=== PATIENT | male | born 1945 | race Caucasian/White ===

== ENCOUNTER 2017-07-06 23:35 | Emergency (ER) | payer MEDICARE, OTHER ==
--- NOTE | 2017-07-07 00:10 | ED Physician Documentation ---
PD HPI UPPER EXT INJURY - Stated complaint Stated Complaint: FALL, R ARM PX - Chief complaint Chief Complaint: Ext Problem - History obtained from History obtained from: Patient - History of Present Illness Location: Right Type of injury: Fall Where injury occurred: A house / apartment Timing - onset: How many hours ago (2) Timing - details: Abrupt onset Pain level now: 2 Improved by: Rest Worsened by: Moving, Palpating Associated symptoms: Swelling. No: Weakness, Numbness Contributing factors: Anticoagulated Similar symptoms before: Has not had sx before Recently seen: Not recently seen - Additonal information Additional information: tripped and fell in friend's yard approximately 2 hours ago, landed on outstretched RUE, c/o right elbow pain. Patient is right hand dominant. No other injuries, no other c/o. Specifically denies head injury and denies headache Review of Systems Musculoskeletal: reports: Extremity pain, Joint pain, Extremity swelling, Joint swelling Neurologic: denies: Focal weakness, Numbness, Headache, Head injury PD PAST MEDICAL HISTORY - Past Medical History Past Medical History: Yes Cardiovascular: Hypertension, Atrial fibrillation Respiratory: Other Other Past Medical History: PE - Past Surgical History Past Surgical History: Yes Ortho: Knee replacement, Other HEENT: Tonsil/Adenoidectomy - Present Medications Home Medications: Ambulatory Orders Medication Instructions Recorded Confirmed Dabigatran Etexilate Mesylate 75 mg PO BID 07/06/17 07/06/17 [Pradaxa] Metoprolol Tartrate 50 mg PO BID 07/06/17 07/06/17 Verapamil [Calan] 80 mg PO DAILY 07/06/17 07/06/17 HYDROcod/ACETAM 5/325 [[place] 5/325] 1 - 2 ea PO Q6H PRN #15 tablet 07/07/17 - Allergies Allergies/Adverse Reactions: Allergies Allergy/AdvReac Type Severity Reaction Status Date / Time No Known Drug Allergies Allergy Verified 07/06/17 23:43 - Social History Does the pt smoke?: No Smoking Status: Never smoker Does the pt drink ETOH?: Yes Does the pt have substance abuse?: No - Immunizations Immunizations are current?: Yes - POLST Patient has POLST: No PD ED PE NORMAL - Vitals Vital signs reviewed: Yes - General General: Alert and oriented X 3, No acute distress, Well developed/nourished - Neuro Neuro: No motor deficit, No sensory deficit PD ED PE EXPANDED - Extremities Extremities: Tenderness, Limited ROM, Swelling, Right elbow, Other (strong palpable right radial pulse (regularly irregular). LTS intact right hand and digits, brisk capillary refill in digits. ) Results - Vitals Vitals: Vital Signs - 24 hr 07/06/17 07/07/17 07/07/17 23:38 02:05 02:07 Temperature 36.6 C Heart Rate 79 92 86 Respiratory 16 13 18 Rate Blood Pressure 118/79 118/85 H 118/85 H O2 Saturation 100 98 96 07/07/17 07/07/17 07/07/17 02:40 02:50 03:37 Temperature 36.7 C Heart Rate 88 91 76 Respiratory 15 18 18 Rate Blood Pressure 122/81 H 121/80 128/77 O2 Saturation 96 97 99 Oxygen O2 Source Room air - Rads (name of study) right elbow xrays Radiology: Prelim report reviewed, See rad report repeat (post-reduction) right elbow xrays Radiology: Prelim report reviewed, See rad report Procedures - Reduction Body part reduced: Right, Elbow Fracture or dislocation: Fracture dislocation Anesthesia: Conscious sedation Elbow reduction technique: Traction counter traction Reduction aftercare: NV intact, Xray confirms reduction, Alignment improved, Splint applied, Sling, Patient tolerated well - Procedural sedation Sedation prep: Informed consent, PE performed, AHA 2 - mild disease, IV O2 monitor, RT present Sedation medications: morphine, propofol Patient status during sedation: Responds to tactile, Vitals remained stable, Maintained airway, Recovered uneventfully Sedation recovery: Recovered uneventfully, Back to baseline PD MEDICAL DECISION MAKING - ED course Complexity details: reviewed results, re-evaluated patient, considered differential, d/w patient Departure - Departure Disposition: 01 Home, Self Care Clinical Impression: Fracture dislocation of elbow joint Condition: Good Instructions: ED Dislocated Elbow, ED Fx Elbow, ED Sling, ED Splint Care Fiberglass Follow-Up: Lenore Blackwell MD [Provider Admit Priv/Credential] - Within 1 week Prescriptions: HYDROcod/ACETAM 5/325 [[place] 5/325] 1 - 2 ea PO Q6H PRN #15 tablet PRN Reason: Pain Discharge Date/Time: 07/07/17 03:38
--- NOTE | 2017-07-07 00:47 | XRAY Preliminary Report ---
Exam: XR ELBOW 3 VIEW RT IMPRESSION: 1. Fracture of the coronoid process of the ulna with posterior dislocation of the radius and ulna at the elbow. [facility] SITE ID: [id number]
--- NOTE | 2017-07-07 00:47 | XRAY Report ---
EXAM: RIGHT ELBOW RADIOGRAPHY EXAM DATE: 07/07/2017 12:21 AM. CLINICAL HISTORY: Fall, pain, tenderness. COMPARISON: None. TECHNIQUE: 4 views. FINDINGS: Bones: Fracture at the coronoid process of the ulna. Joints: Posterior dislocation of the radius and ulna with respect to the humerus. Soft Tissues: Soft tissue swelling. IMPRESSION: 1. Fracture of the coronoid process of the ulna with posterior dislocation of the radius and ulna at the elbow. [facility] Referring Provider Line: [phone] SITE ID: [id number]
[2017-07-07] MEDS ORDERED: MORPHINE 2 MG/ML SYRINGE IVP STA (01:39)
[2017-07-07] MEDS ORDERED: PROPOFOL 200 MG/20 ML VIAL IVP STA (01:40)
--- NOTE | 2017-07-07 03:34 | XRAY Report ---
EXAM: RIGHT ELBOW RADIOGRAPHY EXAM DATE: 07/07/2017 03:01 AM. CLINICAL HISTORY: Post-reduction. COMPARISON: 07/07/2017, 00 21 hours. TECHNIQUE: 2 views. FINDINGS: Bones: Fracture of the coronoid process of the ulna. Joints: Dislocation reduced. Possible small joint effusion. Soft Tissues: Soft tissue swelling. Detail obscured by overlying splint. IMPRESSION: 1. Dislocation reduced. 2. Coronoid process fracture noted. [facility] Referring Provider Line: [phone] SITE ID: [id number]
--- NOTE | 2017-07-07 03:34 | XRAY Preliminary Report ---
Exam: XR ELBOW 2 VIEW RT IMPRESSION: 1. Dislocation reduced. 2. Coronoid process fracture noted. [facility] SITE ID: [id number]
[2017-07-07 03:38] VITALS: BP 128/77
== END 2017-07-07 03:38 | disposition home or self-care (01) ==
LOC: ED 23:35
DX: S53.024A Posterior dislocation of right radial head, initial encounter (principal); S52.041A Displaced fracture of coronoid process of right ulna, initial encounter for closed fracture; W01.0XXA Fall on same level from slipping, tripping and stumbling without subsequent striking against object, initial encounter; Y93.01 Activity, walking, marching and hiking; Y92.096 Garden or yard of other non-institutional residence as the place of occurrence of the external cause; I10 Essential (primary) hypertension; I48.91 Unspecified atrial fibrillation; Z79.01 Long term (current) use of anticoagulants
CPT/HCPCS: 24600; 73070; 73080; 96374; 99152; 99283; 99284; J2270